=== PATIENT | male | born 1990 | race Hispanic/Latino ===

== ENCOUNTER 2017-01-05 06:29 | Day surgery (SDC) | payer OTHER ==
[2017-01-05 06:56] VITALS: BMI 26.1
[2017-01-05 07:12] VITALS: O2SAT 100
[2017-01-05] MEDS ORDERED: Propofol 10 mg/ml Inj (20 ML) ONE ×2 (09:04→09:12)
[2017-01-05] MEDS ORDERED: Lidocaine Hydrochloride 5 ML INJ ONE (09:04)
[2017-01-05] MEDS ORDERED: Simethicone 40 mg/0.6 ml Liquid (30 ml) ONE (09:14)
[2017-01-05] MEDS ORDERED: Lactated Ringer's 500 ML IV SCH (09:15)
[2017-01-05 09:51] VITALS: TEMP 98.4
[2017-01-05 10:08] VITALS: PULSE 76
[2017-01-05 10:33] VITALS: BP 137/85; RESP 16
== END 2017-01-05 10:18 | disposition home or self-care (01) ==
LOC: C.ENDO 06:29
PROVIDERS: ATTEND Internal Medicine
DX: K63.5 Polyp of colon (principal); K62.5 Hemorrhage of anus and rectum; R19.4 Change in bowel habit; K52.9 Noninfective gastroenteritis and colitis, unspecified; K64.8 Other hemorrhoids
CPT/HCPCS: 45380; 45385; 88305; 88313; 88342; J2704; J3010; J7120